=== PATIENT | female | born 1970 | race Caucasian/White ===

== ENCOUNTER 2016-08-20 14:18 | Inpatient (IN) ==
--- NOTE | 2016-08-19 22:02 | Discharge Summary ---
<LeidyglennKristine L - Last Filed: 08/19/16 21:58> Date of Encounter: 08/19/16 - Discharge Diagnosis (1) Arthritis of knee, left Priority: Primary Status: Acute (2) Total knee replacement status Priority: Secondary Status: Chronic Qualifiers: Laterality: left Qualified Code(s): Z96.652 - Presence of left artificial knee joint (3) Tobacco use Priority: Secondary Status: Chronic - Discharge Medications Home Medications: Enoxaparin [Lovenox] 30 mg SQ Q12HR #20 syr 08/19/16 [Rx] OxyCODONE Immed Rel [Roxicodone 5 MG] 5 - 10 mg PO Q6HR PRN #40 tablet 08/19/16 [Rx] BuPROPion [Wellbutrin] 100 mg PO DAILY 08/20/16 [History] Varenicline Tartrate [Chantix] 1 mg PO BID 08/20/16 [History] Allergies/Adverse Reactions: Allergies Sulfa (Sulfonamide Antibiotics) Allergy (Verified 08/20/16 14:54) Anaphylaxis acetaminophen [From Darvocet-N] Adverse Reaction (Verified 08/20/16 14:54) Vomiting aspirin Adverse Reaction (Verified 08/20/16 14:54) Hives propoxyphene [From Darvocet-N] Adverse Reaction (Verified 08/20/16 14:54) Vomiting sumatriptan [From Imitrex] Adverse Reaction (Verified 08/20/16 14:54) Itching Primary care physician: Rafael Ibrahim CNP - Patient Status Disposition: Home, Self-Care Condition: Good - Discharge Instructions Follow Up With: Rafael Ibrahim CNP [Primary Care Provider] - - Hospital Course Hospital course: Ms. Mccann is a 46 year old female - Time Spent with Patient Total time spent providing and/or coordinating discharge services: <Shorty Cherry - Last Filed: 08/21/16 06:22> Date of Encounter: 08/21/16 Time of Encounter: 06:22 - Discharge Diagnosis (1) Morbid obesity with BMI of 40.0-44.9, adult Priority: Secondary Status: Chronic (2) Arthritis of knee, left Priority: Primary Status: Acute (3) Tobacco use Priority: Secondary Status: Chronic Primary care physician: Rafael Ibrahim CNP - Patient Status Functional capacity at discharge: uses cane/walker Overall status at discharge: patient is progressing back to baseline - Hospital Course Hospital course: Ms. Mccann is a 46 year old female The patient had an uneventful postoperative course. They received antibiotics and physical therapy and were discharged in stable condition. There will follow -up in the office in 2 weeks. - Time Spent with Patient Total time spent providing and/or coordinating discharge services:
--- NOTE | 2016-08-20 14:23 | History & Physical Report ---
Date of Encounter: 08/20/16 Time of Encounter: 14:23 24 Hour HP Update - Instructions Instructions: If the History and Physical is less than 30 days old and was completed prior to A.M. admission and or procedure and has NOT been updated on calendar day of procedure please complete this update prior to performing procedure. - Update Patient reports changes in Medical Condition: No Changes in assessment/condition: No Changes in Medication: No Preop tests/diagnostics Reviewed: Yes Surgery Remains Indicated: Yes Consent for Planned Operative Procedure(s) Verified: Yes - Pre-Operative Checklist Preoperative Checklist Indicated: No Prophylactic Antibiotic Ordered: Yes Is VTE Prophylaxis Indicated?: Yes
--- NOTE | 2016-08-20 15:09 | Anesthesia Evaluation PreOp ---
Date of Encounter: 08/20/16 Time of Encounter: 15:06 - Past History Planned Operation: l tka Cardiac History: Denies any Significant Hx Pulmonary History: Smoker (5 cigs/day) DISK SANDER History: Denies Any Significant HX Other Medical History: Denies Any Significant HX Anesthesia History: Past Anesthesia (surgery throat, tonsils, l tka) Test: Negative (08/13) Alcohol Use: none Drug use: none Medications and Allergies Enoxaparin [Lovenox] 30 mg SQ Q12HR #20 syr 08/19/16 [Rx] OxyCODONE Immed Rel [Roxicodone 5 MG] 5 - 10 mg PO Q6HR PRN #40 tablet 08/19/16 [Rx] BuPROPion [Wellbutrin] 100 mg PO DAILY 08/20/16 [History] Varenicline Tartrate [Chantix] 1 mg PO BID 08/20/16 [History] Allergies Sulfa (Sulfonamide Antibiotics) Allergy (Verified 08/20/16 14:54) Anaphylaxis acetaminophen [From Darvocet-N] Adverse Reaction (Verified 08/20/16 14:54) Vomiting aspirin Adverse Reaction (Verified 08/20/16 14:54) Hives propoxyphene [From Darvocet-N] Adverse Reaction (Verified 08/20/16 14:54) Vomiting sumatriptan [From Imitrex] Adverse Reaction (Verified 08/20/16 14:54) Itching - Meds/Allergy Pre-op Review Medications Reviewed: Yes Allergies Reviewed: Yes Beta Blockers on Current Med List: No Anesthesia Results - Labs O2 Sat Height 1.57 m Weight 108.862 kg Laboratory Tests 08/13/16 08/13/16 08/13/16 11:05 11:05 11:05 Hgb 13.9 Hct 41.4 Plt Count 247 PT 10.4 INR 1.0 APTT 30.4 Sodium 138 Potassium 4.2 Anesthesia Exam O2 Sat Height 1.57 m Weight 108.862 kg Height: 1.578 Weight: 108 NPO (# of Hours): >8 - HEENT Pupil (Motor): Pupils equal, EOMI Mallampati: II Teeth: Normal Oral Opening: Greater than 3 - DISK SANDER LOC: Oriented DISK SANDER Motor: Normal RUE, Normal LUE, Normal RLE, Normal LLE, Normal Face DISK SANDER Sensory: Normal: RUE, LUE, RLE, LLE, Face - Cardiac Rhythm: Regular Murmur: None - Pulmonary Breath Sounds: bilateral Clear Respiratory Effort: Symmetrical Anesthesia Assess/Plan ASA Score: 2 Modified Lily Scale for Level of Consciousness: Cooperative, oriented, and tranquil Anesthetic Plan: General, Regional Monitoring Plan: Standard Monitors Recovery Plan: PACU
[2016-08-20] MEDS ORDERED: Albuterol 2.5 MG/3 ML NEBULIZER IH ONE ×2 (15:11→20:00)
[2016-08-20] MEDS ORDERED: CeFAZolin Pre 2,000 MG/100 ML 2,000 MG/100 ML BAG IVPB ONE (15:11)
[2016-08-20] MEDS ORDERED: Ringers Solution, Lactated 1,000 ML IVC SCH ×3 (15:15→20:15)
[2016-08-20] MEDS ORDERED: Magnesium Sulfate 2 GM/100 ML PIGGYBACK IVPB ONE (15:21)
[2016-08-20] MEDS ORDERED: CloNIDine Patch 0.1 MG PATCH (WEEKLY) TD SCH (15:30)
[2016-08-20] MEDS ORDERED: *HR* Magnesium Sulfate 1 GM/2 ML VIAL ONE (16:10)
[2016-08-20] MEDS ORDERED: Dexamethasone 4 MG/ML VIAL ONE (16:33)
[2016-08-20] MEDS ORDERED: Ondansetron 4 MG/2 ML VIAL ONE (16:33)
[2016-08-20] MEDS ORDERED: Ketamine *HR* 500 MG/10 ML MDV ONE (16:39)
[2016-08-20] MEDS ORDERED: *HR* HYDROmorphone 2 MG/ML SYRINGE ONE (16:39)
--- NOTE | 2016-08-20 17:15 | Orthopedic Operative Note ---
Date of procedure: 08/20/16 Pre-op diagnosis: Left knee arthritis Post-op diagnosis: same Procedure: Procedure: Left Total knee replacement Estimated blood loss: 200 cc Hardware: Arthrex Femur: 5 Tibia: 3 PS insert: 10 Patella: 34 Exam Under anesthesia: Full flexion full extension positive crepitation varus alignment Procedural Notes: Grade 4 arthritic changes medial compartment patellofemoral joint. Operative procedure: The patient was brought to the operating room and placed on the operating room table. After general anesthesia was administered the operative knee was examined. Findings were noted in the exam under anesthesia. The operative extremity was prepped and draped in sterile surgical fashion. The patient received IV antibiotics prior to skin incision. A standard midline incision was made centered over the patella. The incision was made through the skin and subcutaneous tissue. A medial parapatellar tendon approach was performed. Care was taken to preserve tissue along the medial aspect of the patella. And to protect the patella tendon. The deep MCL was released off the medial tibia. The infra patella fat pad was excised. Knee was brought into flexion. Patient noted to have grade 4 arthritic changes medial compartment and patellofemoral joint. The entry hole was made for the intramedullary femoral guide. The guide was seated in 6 degrees of valgus. Anterior cut was made followed by the distal cut. The ACL the PCL the medial and the lateral menisci were excised. The tibia was subluxed forward. The entry hole was made for the intramedullary tibial guide. Guide was seated to resect 2 mm off the more abnormal side. The knee was brought into flexion the distal femur was sized to a 5. The femoral guide was seated, the anterior cut was made followed by the posterior condylar cut, followed by the chamfer cuts. The finishing guide was seated the box cut was made and the lug holes were drilled. The tibia was sized to a 4, the tibial tray was seated and prepared with the large drill followed by the fin cutter. Trial reduction revealed full extension no varus valgus instability with the appropriate 10 PS Ainsley. The patella was everted and cut was made at the level of the insertion of the quadriceps and patella tendon. The patella was sized to a 34 the guide was seated and the lug holes are drilled. Trial reduction revealed excellent patella tracking. All trial components were removed all bony surfaces were irrigated. The tibia was cemented first followed by the femur. The 10 PS Ainsley was seated and the knee was brought into full extension. The patella was cemented and held in place with the patellar holding clamp. After the cement had hardened, the knee sat for 2 minutes with a Betadine saline solution. The knee was then irrigated out with 2 L of pulse irrigation. The extensor mechanism was closed with #2 FiberWire suture and #2 PDS suture. The subcutaneous tissue was then irrigated and closed deep with #1 PDS suture superficially with 0 PDS suture and skin was closed with skin sharon. The patient was then placed in a sterile dressing and a postoperative brace extubated and transferred to recovery room in stable condition. Anesthesia: MAYUR Surgeon: Shorty Cherry Family Preservation Worker: Kristine Brown Condition: stable Disposition: PACU
[2016-08-20] MEDS ORDERED: *HR* Promethazine 25 MG/ML VIAL IVP PRN (17:45)
[2016-08-20] MEDS ORDERED: *HR* HYDROmorphone (PF) 1 MG/ML SYRINGE ONE ×2 (17:45→17:51)
[2016-08-20] MEDS: *HR* HYDROmorphone (PF) 1 MG/ML SYRINGE IVP PRN ×4 (17:45→18:00)
[2016-08-20] MEDS ORDERED: *HR* Midazolam HCl 2 MG/2 ML VIAL ONE (17:54)
[2016-08-20] MEDS ORDERED: ROPIVACAINE HCL/PF 0.5% 30 ML VIAL ONE (17:55)
[2016-08-20] MEDS ORDERED: Acetaminophen IV 1,000 MG/100 ML INFUS..BTL ONE (17:55)
[2016-08-20] MEDS ORDERED: Bupivacaine/Clonidine Syringe 1 EACH SYRINGE ONE (17:56)
[2016-08-20] MEDS ORDERED: Lidocaine -MPF 2% 2 ML VIAL ONE ×2 (17:57→17:58)
[2016-08-20] MEDS ORDERED: *HR* Enoxaparin 30 MG/0.3 ML SYRINGE SQ SCH (18:00)
[2016-08-20 18:07] LABS: Hematocrit 35.3 % (35.3-44.9); Hemoglobin 12.1 g/dL (11.5-15.4)
--- NOTE | 2016-08-20 18:24 | Anesthesia Procedures ---
Date of Encounter: 08/20/16 Time of Encounter: 16:15 Procedures: Anesthesia - Nerve Block Procedure Date: 08/20/16 Time: 16:15 Allergies/Adv Reactions: sulfa, asa Pre-op Diagnosis: left knee oa Surgical Procedure: left tka Checklist: Correct Patient Identifier, Correct procedure, History checked Correct side: Left Blood Thinner: No Monitor Applied: EKG, BP, Pulse Oximetry Supplemental Oxygen via Nasal Cannula (L/min): 6 (Facemask) Sedation: Versed (mg): 2 Indication: Post Op Analgesia Pre-op Neuro Deficits: No Block Type: Femoral Catheter placed: No Sterile Technique: Yes Ultrasound used: Yes Anatomy identified: Yes Visual spread of Local: Yes Neuro Stimulation: Yes Nerve Stimulator Range: 0.2 - 0.4 mA Blood on Needle Aspiration: No Smooth Injection of Local: Yes Pain with Injection of Local: No Prep: Chlorhexadine Needle: 22 x 50 mm Stimuplex Local: Ropivacaine (25mL 0.5%), Other (6mL 2% lido + 10mg Decadron) Volume (cc): 30 Number of Attempts: 1 Complications: None/effective block Vitals: Vital Signs/O2 Sat/Glucose, Most Recent Temp Pulse Resp BP Pulse Ox 98.7 F 82 16 150/92 98 08/20/16 17:38 08/20/16 18:08 08/20/16 18:08 08/20/16 18:08 08/20/16 18:08
[2016-08-20] MEDS ORDERED: *HR* Midazolam HCl 2 MG/2 ML VIAL IVP ONE (18:29)
[2016-08-20] MEDS ORDERED: Gabapentin 300 MG CAPSULE PO ONE (18:32)
[2016-08-20] MEDS ORDERED: Ketorolac 30 MG/ML VIAL IVP ONE (18:44)
[2016-08-20] MEDS ORDERED: *HR* HYDROmorphone (PF) 1 MG/ML SYRINGE IVP PRN ×2 (18:45→19:41)
--- NOTE | 2016-08-20 19:13 | Anesthesia Evaluation Post Op ---
Date of Encounter: 08/20/16 Time of Encounter: 19:15 - Vital Signs Vital Signs: Vital Signs/O2 Sat/Glucose, Most Current Temp Pulse Resp BP Pulse Ox 08/20/16 18:48 98.2 F 79 16 109/51 92 L 08/20/16 18:38 83 16 112/69 96 08/20/16 18:28 80 16 104/78 94 L 08/20/16 18:18 84 16 113/54 93 L 08/20/16 18:08 98.3 F 82 16 150/92 98 08/20/16 17:58 82 16 145/89 98 08/20/16 17:48 79 16 146/81 96 08/20/16 17:38 98.7 F 84 16 141/90 96 08/20/16 15:15 98.2 F 76 18 145/88 96 - Lungs Lungs: Clear Ascult./Percussion - Airway Airway: Non-obstructed - Cardiovascular Regular Rate - Mental Status Mental Status: Alert & Oriented, Answers Appropriately - Pain Pain Scale: 4 - Nausea Vomiting Nausea Vomiting: Not Present - Hydration Hydration: Ice chips - Discharge PostOp Status: Transfer Patient to floor
[2016-08-20] MEDS ORDERED: MOM Conc 10 ML UD.LIQ PO PRN ×2 (19:41→20:09)
[2016-08-20] MEDS ORDERED: Temazepam 15 MG CAPSULE PO PRN ×2 (19:41→20:13)
[2016-08-20] MEDS ORDERED: Ondansetron 4 MG/2 ML VIAL IVP PRN ×2 (19:41→20:10)
[2016-08-20] MEDS ORDERED: Sennosides 8.6 MG TABLET PO PRN ×2 (19:41→20:12)
[2016-08-20] MEDS ORDERED: *HR* OxyCODONE Immed Rel 5 MG TABLET PO PRN ×4 (19:41→20:11)
[2016-08-20] MEDS ORDERED: Naloxone 0.4 MG/ML INJ IVP PRN ×2 (19:41→20:10)
[2016-08-20] MEDS ORDERED: ceFAZolin 2,000 MG in D5% in Water 100 ML IVPB SCH (19:41)
[2016-08-20] MEDS ORDERED: *HR* HYDROmorphone 2 MG/ML SYRINGE IVP PRN (20:06)
[2016-08-20] MEDS ORDERED: VARENICLINE TARTRATE 1 MG PO SCH (21:00)
[2016-08-21] MEDS ORDERED: ceFAZolin 2,000 MG in D5% in Water 100 ML IVPB SCH
[2016-08-21] MEDS ORDERED: *HR* Enoxaparin 30 MG/0.3 ML SYRINGE SQ SCH ×2 (06:00→07:00)
--- NOTE | 2016-08-21 06:23 | Orthopedics Progress Note ---
Date of Encounter: 08/21/16 Time of Encounter: 06:22 - Assessment and Plan (1) Morbid obesity with BMI of 40.0-44.9, adult Current Visit: Yes Status: Chronic (2) Arthritis of knee, left Current Visit: Yes Status: Acute (3) Tobacco use Current Visit: Yes Status: Chronic Subjective Interval history: Patient was seen this morning doing well without complaints. Afebrile vital signs stable. Operative extremity: Neurovascularly intact Dressing clean dry and intact Calves nontender Assessment and plan: Continue with postoperative care Discharged today Objective Vital signs: Vital Signs Temp Pulse Resp BP Pulse Ox 08/21/16 03:54 98.4 F 80 19 107/61 95 08/21/16 00:37 98.5 F 85 17 122/70 98 08/20/16 22:35 98.6 F 76 16 134/89 97 08/20/16 22:05 97.7 F 82 14 119/80 97 08/20/16 20:47 97.9 F 78 16 108/71 93 L 08/20/16 20:35 97.9 F 78 16 108/71 94 L 08/20/16 20:12 92 L 08/20/16 20:00 97.7 F 89 16 105/81 92 L 08/20/16 19:30 98.1 F 92 19 135/81 96 08/20/16 19:08 85 16 105/50 92 L 08/20/16 18:58 85 16 118/76 92 L 08/20/16 18:48 98.2 F 79 16 109/51 92 L 08/20/16 18:38 83 16 112/69 96 08/20/16 18:28 80 16 104/78 94 L 08/20/16 18:18 84 16 113/54 93 L 08/20/16 18:08 98.3 F 82 16 150/92 98 08/20/16 17:58 82 16 145/89 98 08/20/16 17:48 79 16 146/81 96 08/20/16 17:38 98.7 F 84 16 141/90 96 08/20/16 15:15 98.2 F 76 18 145/88 96 Intake and Output 08/20/16 08/20/16 08/21/16 15:59 23:59 07:59 Intake Total 1999 / 1999 100 / 100 Output Total 1100 / 1100 1000 / 1000 Balance 900 / 900 -900 / -900 Intake: IV Fluids 1000 / 1000 100 / 100 Lactated Ringers 1,000 ML 1000 / 1000 @ 25 mls/hr IVC .Q24H RE[facility] Rx#:[id number] Ancef 2,000 MG In 100 / 100 Dextrose 5% 100 ML @ 200 mls/hr IVPB Q8HR REK[facility] Rx#: [id number] Oral 1000 / 1000 Output: Urine 600 / 600 1000 / 1000 Estimated Blood Loss 500 / 500 Other: # Voids 1 Weight 108.862 kg - Labs CBC & BMP: 08/20/16 17:55 - VTE Documentation of Mechanical Device: Venous foot pump, device Consult Discharge Plan - Plan Referrals: Rafael Ibrahim, PLUNKET NURSE [Primary Care Provider] -
[2016-08-21 07:04] LABS: Hematocrit 31.1 % (35.3-44.9)
[2016-08-21 07:22] LABS: BUN/Creatinine Ratio 19 (6-26); Blood Urea Nitrogen 15 mg/dL (7-20); Calcium 8.5 mg/dL (8.6-10.8); Carbon Dioxide 23 mEq/L (19-29); Chloride 106 mEq/L (98-109); Glucose 151 mg/dL (70-99); Osmolality,Calculated 286 (280-300); Potassium 4.4 mEq/L (3.5-4.5); Sodium 136 mEq/L (136-145); eGFR For African Americans > 60 (> 60); eGFR For Non-African Americans > 60 (> 60)
[2016-08-21] MEDS ORDERED: CefTRIAXone 2,000 MG VIAL IM ONE (08:00)
[2016-08-21] MEDS ORDERED: Ibuprofen 600 MG TABLET PO PRN (11:13)
[2016-08-21] MEDS ORDERED: levoFLOXacin 500 MG TABLET PO ONE (11:13)
[2016-08-21 11:21] VITALS: BP 101/50
== END 2016-08-21 12:30 | disposition home or self-care (01) | DRG 302 ==
LOC: SAMDAY 14:18 → 3NENU 19:39
PROVIDERS: ADMIT Orthopaedic Surgery; ATTEND Orthopaedic Surgery